=== PATIENT | male | born 1965 | race Caucasian/White ===

== ENCOUNTER 2024-09-15 10:41 | Emergency (ER) | payer OTHER, SELFPAY ==
[2024-09-15] VITALS (9 sets, daily range): BP systolic 147–192; BP diastolic 74–93; PULSE 49–71; RESP 12–23; TEMP 35.9–36.9; O2SAT 95–99; BMI 31.0
[2024-09-15 11:55] LABS: Urine Volume 10mL (spun)
[2024-09-15 11:56] LABS: Bacteria Urine None Seen; Culture Indicated Urine Cult Not Indicated; Mucus Urine 1+ (Negative); RBC Urine 10-30/HPF (0-5/HPF); Squamous Epithelial Cell Urine 1-5 /HPF (0-5/HPF); WBC Urine None Seen (0-5/HPF)
[2024-09-15 12:11] LABS: Add Manual Diff / Slide Review NO; Basophils Absolute Auto 100 /uL (0-100); Basophils Percent Auto 0.5 % (0-2); Eosinophils Absolute Auto 0 /uL (0-450); Eosinophils Percent Auto 0.1 % (2-4); Hematocrit 50.5 % (41-53); Hemoglobin 16.9 g/dL (13.5-17.5); Lymphocytes Absolute Auto 1000 /uL (1100-4500); Lymphocytes Percent Auto 8.8 % (25-40); Mean Corpuscular HGB Conc 33.5 % (30-36); Mean Corpuscular Hemoglobin 26.4 PG (26-34); Monocytes Absolute Auto 800 /uL (0-900); Monocytes Percent Auto 6.7 % (3-14); Neutrophils Absolute Auto 9600 /uL (1500-7000); Neutrophils Percent Auto 83.9 % (50-75); Platelet Count 167 X10^3/uL (150-400); Red Cell Distribution Width 14.5 % (11.6-14.8); White Blood Cell Count 11.5 X10^3/uL (4.5-11.0)
[2024-09-15 12:15] LABS: Alanine Aminotransferase 33 IU/L (<50); Albumin 4.8 g/dL (3.5-5.0); Albumin Globulin Ratio 1.8 (1.0-2.8); Alkaline Phosphatase 89 U/L (38-126); Aspartate Aminotransferase 42 IU/L (17-59); BUN Creatinine Ratio 16.8 (6-22); Bilirubin Total 1.4 mg/dL (0.2-1.3); Blood Urea Nitrogen 22 mg/dL (9-20); Calcium 9.7 mg/dL (8.4-10.2); Carbon Dioxide 22 mmol/L (22-32); Chloride 104 mmol/L (98-107); Estimated Glomerular Filt Rate > 60 mL/min (>60); Globulin 2.7 g/dL (1.7-4.1); Glucose 122 mg/dL (80-110); HEMOLYSIS 32 (0-50); Lipase 29 U/L (23-300); Potassium 4.8 mmol/L (3.4-5.1); Sodium 136 mmol/L (137-145); Total Protein 7.5 g/dL (6.3-8.2)
--- NOTE | 2024-09-15 15:15 | PC.NURSE ---
This RNs first interaction with patient.
--- NOTE | 2024-09-15 15:20 | PC.NURSE ---
This RNs first interaction with patient.
--- NOTE | 2024-09-15 15:26 | EKG_ITS ---
[address] [address] Test Date: 2024-09-15 Pat Name: Dorian Mendieta Department: [facility] Room: Gender: Male Assistant Curator: JESSY : 1965 Requested By: Order Number: [id number] Reading MD: Alan Lund MD Measurements Intervals [place] Rate: 51 P: 33 MO: 196 QRS: 42 QRSD: 100 T: 28 QT: 432 QTc: 398 Interpretive Statements Sinus bradycardia Electronically Signed On 09-15-2024 16:51:03 PST by Alan Lund MD
--- NOTE | 2024-09-15 15:52 | ED.ABDPAIN ---
HPI - Abdominal Pain General Chief Complaint: Abdominal Pain Stated Complaint: Per patient , May have Kidney stone Time Seen by Provider: 09/15/24 15:10 Source: patient Mode of arrival: Ambulatory History of Present Illness HPI narrative: Patient is a 59-year-old male history of hyperlipidemia presenting today with pretty significant left flank pain. He reports it woke him from his sleep at 3:30 a.m. this morning. He does feel like he has left flank pain and then suprapubic pain. Comes and goes in waves feeling nauseous. He does have a prior history of kidney stone this feels a little bit similar. No other symptoms Related Data Home Medications Medication Instructions Recorded Confirmed aspirin 81 mg tablet,delayed 81 mg PO DAILY 05/22/24 05/22/24 release Previous Rx's Medication Instructions Recorded atorvastatin 40 mg tablet 40 mg PO DAILY for cholesterol. 05/22/24 prevents heart attack and stroke #90 tabs triamcinolone acetonide 0.1 % 1 applic topical BID PRN PSORIASIS 05/22/24 topical ointment #60 grams sildenafil 50 mg tablet See Rx Instructions PO DAILY PRN 07/02/24 sexual activity #30 tabs hydrocodone 5 mg-acetaminophen 325 1 tab PO Q6H PRN pain #10 tabs 09/15/24 mg tablet ondansetron 4 mg disintegrating 4 mg PO Q8H PRN nausea and 09/15/24 tablet vomiting #10 tabs tamsulosin 0.4 mg capsule (Flomax) 0.4 mg PO DAILY #7 caps 09/15/24 Allergies Allergy/AdvReac Type Severity Reaction Status Date / Time Iodinated Contrast Media Allergy Mild Throat Verified 05/22/24 11:51 swelling Patient History Medical History (Updated 09/15/24 @ 17:32 by Mague Hardy DO) Kidney stone Psoriasis Elevated blood pressure reading Mixed hyperlipidemia Surgical History (Updated 05/29/24 @ 15:03 by Kateryna Diop MD) H/O cataract Social History Smoking Status: Never smoker additional social history: from [facility] in December 2023 PMHX: elevated BP was prescribed some medication: vasotec prescribe high chol: 40mg lipitor (familial) ASA 81 mg psoriasis -- topical steroid colonoscopy 2017 neg: due in 2027 FHX: GGF -- stroke -- tobacco otherwise no MS, CVA cancer: mom of glioblastoma at 46 yo uncle of GI cancer dad is 88 yo brother : no health problems no diabetes PSHX: cataract -- 2020 - both eyes tobacco: no etoh: 1/2 glass 2/week 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 - lives with exercise: garden, hike, kayak, yoga 1-2 hours per day. blood work done: 5 months ago -- LDL in 90s kidney stone at 15 yo 04/2024 Smoking Status: Never smoker Exam Initial Vital Signs Initial Vital Signs: Vital Signs Temperature 98.5 F 09/15/24 11:06 Pulse Rate 50 L 09/15/24 11:06 Respiratory Rate 16 09/15/24 11:06 Blood Pressure 186/88 H 09/15/24 11:06 Pulse Oximetry 98 09/15/24 11:06 Oxygen Delivery Method Room Air 09/15/24 11:06 GENERAL: Alert pleasant 59-year-old male appears uncomfortable and in no acute distress. HEENT: Head atraumatic,EOMI, pupils reactive, face symmetric, moist mucous membranes CARDIOVASCULAR: Regular rate and rhythm without murmurs, rubs or gallops. RESPIRATORY: Breath sounds equal bilaterally, no wheezes rales or rhonchi. ABDOMEN: Soft, nontender. Normoactive bowel sounds all 4 quadrants. No guarding or rebound. : Mild left flank pain EXTREMITIES: Normal range of motion, no clubbing or edema. Neurovascularly intact NEUROLOGICAL: Alert and oriented x4.Normal gait and speech. SKIN: Warm, dry, no laceration, no petechiae, no rashes or lesions. Course Orders Ordered: ED Orders 09/15/24 11:19 EKG-12 Lead Stat 09/15/24 11:48 Urine Microscopic Stat 09/15/24 11:50 Complete Blood Count AUTO DIFF Stat Comprehensive Metabolic Panel Stat Lipase Stat 09/15/24 16:11 CT kidney ureter bladder (KUB) Stat Discontinued Medications Hydrocodone Bitart/Acetaminophen (Hydrocodone/Acet 5/325 Tablet) 1 tab PO NOW ONE Stop: 09/15/24 15:59 Last Admin: 09/15/24 16:10 Dose: 1 tab Documented By: CHARITY Ketorolac Tromethamine (Ketorolac 30 Mg/Ml Vial) 15 mg IV NOW ONE Stop: 09/15/24 15:53 Last Admin: 09/15/24 16:40 Dose: Not Given Documented By: CHARITY Ketorolac Tromethamine (Ketorolac 30 Mg/Ml Vial) 30 mg IM NOW ONE Stop: 09/15/24 15:59 Last Admin: 09/15/24 16:10 Dose: 30 mg Documented By: CHARITY Ondansetron HCl (Ondansetron 4 Mg/2 Ml Inj) 4 mg IV NOW PRN PRN Reason: Nausea And Vomiting Ondansetron HCl (Ondansetron 4 Mg Odt) 4 mg PO NOW PRN PRN Reason: Nausea And Vomiting Last Admin: 09/15/24 16:20 Dose: 4 mg Documented By: CHARITY Vital Signs Vital signs: Vital Signs - 8 hr 09/15/24 11:06 09/15/24 14:15 09/15/24 15:18 Temperature 98.5 F 96.7 F L Pulse Rate 50 L 55 L 71 Respiratory Rate 16 18 14 Blood Pressure 186/88 H 147/74 H 164/90 H Pulse Oximetry 98 98 98 Oxygen Delivery Method Room Air Room Air 09/15/24 15:22 09/15/24 15:22 09/15/24 15:30 Temperature Pulse Rate 70 54 L Respiratory Rate 17 14 Blood Pressure 164/90 H Pulse Oximetry 97 99 Oxygen Delivery Method 09/15/24 15:30 09/15/24 16:00 09/15/24 16:00 Temperature Pulse Rate 49 L Respiratory Rate 13 Blood Pressure 192/93 H 191/90 H Pulse Oximetry 98 Oxygen Delivery Method 09/15/24 16:30 09/15/24 17:00 09/15/24 17:30 Temperature Pulse Rate 65 56 L 61 Respiratory Rate 17 12 23 Blood Pressure Pulse Oximetry 97 95 95 Oxygen Delivery Method MDM - Abdominal Pain Lab Data 09/15/24 11:50 09/15/24 11:50 Labs: Lab Results 09/15/24 09/15/24 Range/Units 11:48 11:50 WBC 11.5 H (4.5-11.0) X10^3/uL RBC 6.40 H (4.5-5.9) X10^6/uL Hgb 16.9 (13.5-17.5) g/dL Hct 50.5 (41-53) % MCV 79.0 L (80-100) fL MCH 26.4 (26-34) PG MCHC 33.5 (30-36) % RDW 14.5 (11.6-14.8) % Plt Count 167 (150-400) X10^3/uL Neut % (Auto) 83.9 H (50-75) % Lymph % (Auto) 8.8 L (25-40) % [place] % (Auto) 6.7 (3-14) % Eos % (Auto) 0.1 L (2-4) % Baso % (Auto) 0.5 (0-2) % Neut # (Auto) 9600 H (1767-2541) /uL Lymph # (Auto) 1000 L (8523-2118) /uL [place] # (Auto) 800 (0-900) /uL Eos # (Auto) 0 (0-450) /uL Baso # (Auto) 100 (0-100) /uL Sodium 136 L (137-145) mmol/L Potassium 4.8 (3.4-5.1) mmol/L Chloride 104 (98-107) mmol/L Carbon Dioxide 22 (22-32) mmol/L BUN 22 H (9-20) mg/dL Creatinine 1.31 H (0.66-1.25) mg/dL Estimated GFR > 60 (>60) mL/min BUN/Creatinine Ratio 16.8 (6-22) Glucose 122 H (80-110) mg/dL Calcium 9.7 (8.4-10.2) mg/dL Total Bilirubin 1.4 H (0.2-1.3) mg/dL AST 42 (17-59) IU/L ALT 33 (<50) IU/L Alkaline Phosphatase 89 (38-126) U/L Total Protein 7.5 (6.3-8.2) g/dL Albumin 4.8 (3.5-5.0) g/dL Globulin 2.7 (1.7-4.1) g/dL Albumin/Globulin Ratio 1.8 (1.0-2.8) Lipase 29 (23-300) U/L Urine RBC 10-30/hpf H (0-5/HPF) Urine WBC None seen (0-5/HPF) Ur Squamous Epith Cells 1-5 /hpf (0-5/HPF) Urine Bacteria None seen (None) Urine Mucus 1+ H (Negative) Ur Culture Indicated? Cult not indicated Vol Urine Centrifuged 10ml (spun) Point of care testing: Urine Dip Bedside Urine Glucose Negative Bedside Urine Bilirubin - Negative Bedside Urine Ketone ++ 40 Urine Specific [place] 1.030 Bedside Urine Occult Blood +++ Bedside Urine pH 6.0 Bedside Urine Protein +/- 15 Bedside Urine Urobilinogen - Negative Bedside Urine Nitrite - Negative Bedside Urine Leukocytes - Negative Esterase Imaging Data CT scan - abdomen/pelvis: Radiologist's Impression: PROCEDURE: CT KIDNEY URETER BLADDER (KUB) INDICATIONS: left flank pain TECHNIQUE: Axial sections were acquired from the lung bases to the pubic symphysis. Coronal and sagittal reformats were performed. For radiation dose reduction, the following was used: automated exposure control, adjustment of mA and/or kV according to patient size. COMPARISON: None. FINDINGS: Image quality: Diagnostic. Lower Chest: Mild dependent atelectasis. Otherwise unremarkable. URINARY: Right Kidney: No stones or hydronephrosis. Right Ureter: No hydroureter. Left Kidney: Mild left hydronephrosis. No obstructing stones. Perinephric stranding is present. Left Ureter: Obstructing 3 millimeter stone at the ureterovesicular junction resulting in mild upstream hydroureter. Periureteral stranding is present. Bladder: Normal wall thickness. No stones. ABDOMEN: Liver: No contour-deforming solid mass. Gallbladder: No radiopaque gallstones or wall thickening. Biliary ducts: No biliary dilation. Pancreas: No ductal dilation. Spleen: Size is within normal limits. Few splenic calcifications are noted. Adrenal Glands: No adrenal nodules. Stomach and Bowel: Normal colonic caliber, without significant wall thickening. Few diverticula without evidence of acute diverticulitis. Normal appendix. Peritoneum: No abnormal intraperitoneal fluid. No free air. Ventral Wall: No hernia. Abdominal Nodes: No enlarged retroperitoneal or mesenteric lymph nodes. Vessels: Aorta and inferior vena cava are normal in size. PELVIS: Pelvic Organs: Unremarkable. Pelvic Nodes: Unremarkable. Miscellaneous: No inguinal hernias are seen. Bones: Degenerative changes of the spine. IMPRESSION: Obstructing 3 millimeters stone within the left ureterovesicular junction resulting in mild upstream hydroureteronephrosis. Periureteral and perinephric stranding is present. Dictated by: Hans Burrell M.D. on 09/15/2024 at 17:09 Approved by: Hans Burrell M.D. on 09/15/2024 at 17:15 ECG Data Attestation: I personally reviewed and interpreted this ECG as follows: Prior ECG tracings: not available for review Interpretation: Normal sinus rhythm rate 51 [place] interval 196 QRS [address] changes MDM Narrative Medical decision making narrative: Patient is a 59-year-old male who presents today with left-sided flank pain. Comes and goes in waves radiating to the front. He was found to have hematuria in his urine suspicious for nephrolithiasis Blood work has been reviewed CBC does show mild leukocytosis WBC 11.5 hemoglobin 16.9 hematocrit 50.5 platelets 160 CMP mild CATHERINE creatinine 1.31 no electrolyte abnormality Urinalysis positive for red blood cells negative for infection CT confirms 3 mm stone at left UVJ Patient was given Toradol IM and [place] which did seem to help with his pain. At this time supportive care only. No need for any further antibiotics. Does to be slightly hemoconcentrated with elevated hemoglobin and hematocrit, along with increased creatinine 1.3. But he is tolerating fluids. Discussed pain medication and supportive care at home. All questions answered Patient hypertensive but thought to be secondary to pain. Low for dissection Discharge Plan Departure Patient Disposition: Home Clinical Impression: Kidney stone on left side Instructions: DI for Kidney Stones Activity Restrictions/Additional Instructions: *You have been diagnosed with kidney stone *What to do: You may need referral to Urology please discuss with your primary care provider At this time please stay hydrated with water Gatorade juice Pedialyte or electrolyte pack a *Continue to take medications as directed--> [facility] to [facility] Motrin 600 mg every 6 hours for eadl-st-aseyfcpt pain Zofran 4 mg every 8 hours for nausea or vomiting [place] 1 tablet every 6 hours if needed for severe pain Flomax 0.4 mg daily for 7 days or until stone passes *Follow up with your primary care provider in 2-3 days or call [phone] *Return to ER if you should have increasing pain persistent vomiting fever greater than 100 point or any new, worsening or concerning symptoms CONTROLLED SUBSTANCE DISCHARGE (Narcotoic/benzodiazepine/Flexeril/Phenergan) 1. You have been prescribed narcotic medications, it does have acetaminophen/Tylenol/paracetamol in it, DO NOT TAKE MORE THAN 4,00mg in 24 hours of Tylenol. TRAMADOL DOES NOT CONTAIN TYLENOL 2. Please understand that we cannot provide further refills of narcotics, benzodiazepines or controlled substances through the ED and her pain management will need to be through your provider. 3. While on these medications you cannot drive or operate heavy machinery. 4. You cannot sign legal documents or perform any duties such as this. 5. As long as you're taking opiate pain medications he should also be taking a stool softener such as Colace, Dulcolax, MiraLAX or prune juice, to help avoid constipation. Prescriptions: New hydrocodone-acetaminophen 5-325 mg tablet 1 tab PO Q6H PRN (Reason: pain) Qty: 10 0RF tamsulosin [Flomax] 0.4 mg capsule 0.4 mg PO DAILY Qty: 7 0RF Rx Instructions: administer 30 minutes after same meal each day; swallow whole with liquid; do not crush/chew/dissolve/open ondansetron 4 mg tablet,disintegrating 4 mg PO Q8H PRN (Reason: nausea and vomiting) Qty: 10 0RF No Action sildenafil 50 mg tablet See Rx Instructions PO DAILY MDD 50 mg PRN (Reason: sexual activity) Qty: 30 12RF Rx Instructions: 1/2 or 1 tab -administer 30 minutes to 4 hours before activity aspirin 81 mg tablet,delayed release (DR/EC) 81 mg PO DAILY atorvastatin 40 mg tablet 40 mg PO DAILY Qty: 90 3RF triamcinolone acetonide 0.1 % ointment 1 applic topical BID PRN (Reason: PSORIASIS) Qty: 60 2RF Referrals: Paddy Goetz DO [Physician] - Kateryna Diop MD [Primary Care Provider] - Coleman Dumont MD [Physician] - Stand Alone Forms: Patient Portal/API/Survey
[2024-09-15] MEDS: HYDROCODONE/ACET 5/325 TABLET 1 TAB PO (16:10)
[2024-09-15] MEDS: KETOROLAC 30 MG/ML VIAL IM (16:10)
--- NOTE | 2024-09-15 16:11 | DI.CT.S_ITS ---
PROCEDURE: CT KIDNEY URETER BLADDER (KUB) INDICATIONS: left flank pain TECHNIQUE: Axial sections were acquired from the lung bases to the pubic symphysis. Coronal and sagittal reformats were performed. For radiation dose reduction, the following was used: automated exposure control, adjustment of mA and/or kV according to patient size. COMPARISON: None. FINDINGS: Image quality: Diagnostic. Lower Chest: Mild dependent atelectasis. Otherwise unremarkable. URINARY: Right Kidney: No stones or hydronephrosis. Right Ureter: No hydroureter. Left Kidney: Mild left hydronephrosis. No obstructing stones. Perinephric stranding is present. Left Ureter: Obstructing 3 millimeter stone at the ureterovesicular junction resulting in mild upstream hydroureter. Periureteral stranding is present. Bladder: Normal wall thickness. No stones. ABDOMEN: Liver: No contour-deforming solid mass. Gallbladder: No radiopaque gallstones or wall thickening. Biliary ducts: No biliary dilation. Pancreas: No ductal dilation. Spleen: Size is within normal limits. Few splenic calcifications are noted. Adrenal Glands: No adrenal nodules. Stomach and Bowel: Normal colonic caliber, without significant wall thickening. Few diverticula without evidence of acute diverticulitis. Normal appendix. Peritoneum: No abnormal intraperitoneal fluid. No free air. Ventral Wall: No hernia. Abdominal Nodes: No enlarged retroperitoneal or mesenteric lymph nodes. Vessels: Aorta and inferior vena cava are normal in size. PELVIS: Pelvic Organs: Unremarkable. Pelvic Nodes: Unremarkable. Miscellaneous: No inguinal hernias are seen. Bones: Degenerative changes of the spine. IMPRESSION: Obstructing 3 millimeters stone within the left ureterovesicular junction resulting in mild upstream hydroureteronephrosis. Periureteral and perinephric stranding is present. Dictated by: Hans Burrell M.D. on 09/15/2024 at 17:09 Approved by: Hans Burrell M.D. on 09/15/2024 at 17:15
[2024-09-15] MEDS: ONDANSETRON 4 MG ODT PO (16:20)
== END 2024-09-15 17:58 | disposition home or self-care (01) ==
PROVIDERS: Emergency Provider Emergency Medicine; PCP Family Medicine
DX: N20.0 Calculus of kidney (principal); E78.5 Hyperlipidemia, unspecified; Z87.442 Personal history of urinary calculi
CPT/HCPCS: 36415; 74176; 80053; 81003; 81015; 83690; 85025; 93005; 93010; 96372; 99283; 99284; J1885

== ENCOUNTER → 2024-11-06 09:44 | Outpatient (CLI) | payer OTHER, SELFPAY ==
[2024-11-06 18:56] LABS: Alanine Aminotransferase 23 IU/L (<50); Albumin 4.4 g/dL (3.5-5.0); Alkaline Phosphatase 86 U/L (38-126); Aspartate Aminotransferase 29 IU/L (17-59); BUN Creatinine Ratio 16.8 (6-22); Bilirubin Total 1.3 mg/dL (0.2-1.3); Blood Urea Nitrogen 19 mg/dL (9-20); Calcium 9.5 mg/dL (8.4-10.2); Carbon Dioxide 26 mmol/L (22-32); Chloride 105 mmol/L (98-107); Cholesterol 160 mg/dL (140-199); Estimated Glomerular Filt Rate > 60 mL/min (>60); Globulin 2.2 g/dL (1.7-4.1); Glucose 96 mg/dL (80-110); HDL Cholesterol 57 mg/dL (40-60); HEMOLYSIS < 15 (0-50); LDL Cholesterol Calculated 86 mg/dL (<100); Potassium 4.7 mmol/L (3.4-5.1); Sodium 138 mmol/L (137-145); Total Protein 6.6 g/dL (6.3-8.2); Triglycerides 86 mg/dL (35-150)
[2024-11-06 19:27] LABS: Prostate Specific Antigen Scrn 0.752 ng/mL (0.1-4.0)
[2024-11-06 19:33] LABS: Add Manual Diff / Slide Review SLIDE REVIEW; Basophils Absolute Auto 0 /uL (0-100); Basophils Percent Auto 0.8 % (0-2); Eosinophils Absolute Auto 200 /uL (0-450); Eosinophils Percent Auto 3.9 % (2-4); Hematocrit 47.5 % (41-53); Hemoglobin 16.1 g/dL (13.5-17.5); Lymphocytes Absolute Auto 2400 /uL (1100-4500); Lymphocytes Percent Auto 41.5 % (25-40); Mean Corpuscular HGB Conc 33.9 % (30-36); Mean Corpuscular Hemoglobin 26.6 PG (26-34); Mean Corpuscular Volume 78.7 fL (80-100); Monocytes Absolute Auto 600 /uL (0-900); Monocytes Percent Auto 9.9 % (3-14); Neutrophils Absolute Auto 2600 /uL (1500-7000); Neutrophils Percent Auto 43.9 % (50-75); Platelet Count 114 X10^3/uL (150-400); Red Blood Cell Count 6.04 X10^6/uL (4.5-5.9); Red Cell Distribution Width 14.6 % (11.6-14.8); White Blood Cell Count 5.8 X10^3/uL (4.5-11.0)
[2024-11-06 19:34] LABS: RBC Morphology Normal Morphology
[2024-11-06 20:13] LABS: Thyroid Stimulating Hormone 1.07 uIU/mL (0.47-4.68)
== END ==
PROVIDERS: PCP Family Medicine; Visit Provider Family Medicine
DX: R03.0 Elevated blood-pressure reading, without diagnosis of hypertension (principal); E78.2 Mixed hyperlipidemia; Z13.29 Encounter for screening for other suspected endocrine disorder; Z13.0 Encounter for screening for diseases of the blood and blood-forming organs and certain disorders involving the immune mechanism; Z13.1 Encounter for screening for diabetes mellitus; Z12.5 Encounter for screening for malignant neoplasm of prostate
CPT/HCPCS: 80053; 80061; 84443; 85025; G0103